=== PATIENT | male | born 1995 | race Caucasian/White ===

== ENCOUNTER 2022-06-23 12:14 | Day surgery (SDC) | payer BC ==
[~2022-06-23 12:14] MED LIST: Lactated Ringers 1,000 ML IV SCH
[2022-06-23] MEDS ORDERED: Propofol 200 MG/20 ML SDV ONE ×2 (13:33→14:47)
[2022-06-23] MEDS ORDERED: Lidocaine 2% 5 ML SDV ONE (13:37)
[2022-06-23] MEDS ORDERED: Lactated Ringers 1,000 ML IV SCH (15:15)
[2022-06-23 15:53] VITALS: BP 126/61; PULSE 54
== END 2022-06-23 16:05 | disposition home or self-care (01) ==
LOC: MW.SDS 12:14
PROVIDERS: ATTEND Surgery
DX: K29.50 Unspecified chronic gastritis without bleeding (principal); K20.90 Esophagitis, unspecified without bleeding; K31.89 Other diseases of stomach and duodenum; K22.89 Other specified disease of esophagus; K92.1 Melena; F17.290 Nicotine dependence, other tobacco product, uncomplicated; Z83.79 Family history of other diseases of the digestive system
CPT/HCPCS: 43239; 45378; J2704; J7120; 00813; J3490

== ENCOUNTER 2023-04-25 10:54 | Emergency (ER) | payer BC ==
[2023-04-25] MEDS ORDERED: Tetracaine HCl/PF 0.5% 4 ML Bottle EYEBOTH ONE (11:20)
[2023-04-25] MEDS ORDERED: Diphtheria,Pertussis(Acell),Tetanus Vaccine 0.5 ML Syringe IM ONE (11:23)
[2023-04-25] MEDS ORDERED: Sodium Chloride 0.9% 1,000 ML IV ONE (11:47)
[2023-04-25 11:57] LABS: BASOPHILS ABSOLUTE AUTO 0.04 K/uL (0.00-0.20); BASOPHILS PERCENT AUTO 0.6 % (0.0-1.0); EOSINOPHILS ABSOLUTE AUTO 0.06 K/uL (0.00-0.45); EOSINOPHILS PERCENT AUTO 0.9 % (0.0-6.0); HEMATOCRIT 44.1 % (42.0-52.0); HEMOGLOBIN 15.7 g/dL (14.0-18.0); IMMATURE GRAN ABSOLUTE AUTO 0.02 K/uL (0.00-0.05); IMMATURE GRAN PERCENT AUTO 0.3 % (0.0-0.4); LYMPHOCYTES PERCENT AUTO 21.2 % (24.0-44.0); MEAN CORPUSCULAR HEMOGLOBIN 29.9 pg (28.0-32.0); MEAN CORPUSCULAR HGB CONC 35.6 g/dL (32.0-36.0); MEAN PLATELET VOLUME 8.9 fL (9.4-12.4); MONOCYTES PERCENT AUTO 7.6 % (0.0-8.0); NEUTROPHILS ABSOLUTE AUTO 4.59 K/uL (1.80-7.70); NEUTROPHILS PERCENT AUTO 69.4 % (41.0-71.0); PLATELET COUNT,PLT 239 K/uL (150-400); RED BLOOD CELL COUNT 5.25 M/uL (4.52-5.90); WHITE BLOOD CELL COUNT,WBC 6.61 K/uL (3.9-11.3)
[2023-04-25 12:22] LABS: A/G RATIO 1.3 (0.9-1.6); ALBUMIN 4.2 g/dL (3.4-5.0); BILIRUBIN TOTAL 0.9 mg/dL (0.2-1.0); CALCIUM 9.5 mg/dL (8.5-10.1); CARBON DIOXIDE,CO2 26.8 mmol/L (21.0-32.0); EST CRCL DRUG DOSING (CG) 101.9 mL/min; POTASSIUM,K 4.1 mmol/L (3.5-5.1); PROTEIN TOTAL,TP 7.4 g/dL (6.4-8.2)
[2023-04-25] MEDS ORDERED: Ketorolac 30 MG/ML SDV IVPUSH ONE (12:22)
[2023-04-25] MEDS ORDERED: Iopamidol 755 Mg/ML 100 ML Bottle IVPUSH ONE (12:49)
[2023-04-25 14:01] VITALS: BP 116/71; PULSE 64
== END 2023-04-25 13:59 | disposition home or self-care (01) ==
LOC: MW.ED 10:54
DX: S05.01XA Injury of conjunctiva and corneal abrasion without foreign body, right eye, initial encounter (principal); Z23 Encounter for immunization; W26.8XXA Contact with other sharp object(s), not elsewhere classified, initial encounter
CPT/HCPCS: 36415; 70481; 80053; 85025; 90471; 90715; 96361; 96374; 99284; J1885; J7030; Q9967; J3490